=== PATIENT | male | born 1950 ===

== ENCOUNTER 2019-08-17 10:19 | Emergency (ER) | payer OTHER ==
[2019-08-17 10:30] VITALS: BP 118/74
--- NOTE | 2019-08-17 10:34 | UC ---
Respiratory Complaint HPI - HPI Summary HPI Summary: 69 yo male presents with URI symptoms. He tells me that starting 1 week ago he developed sore throat, sinus congestion, and an intermittently productive cough. He figured he had a cold and decided to wait his symptoms out to see if he improved. He did feel better for 2 days earlier this week, but over the last 2 days his cough has worsened and he feels that he is wheezing more. He tells me that he has a long history of moderate asthma and every winter gets "bronchitis" that requires prednisone and anbx. He has an albuterol inhaler at home and has been using this more often over the last 2 days. He feels short of breath at times when getting into "coughing fits". Phelgm is green at times. Denies fever, chest pain, abdominal pain, n/v. He does not smoke - History of Current Complaint Chief Complaint: UCRespiratory Stated Complaint: PRESCRIPTION REFILL Time Seen by Provider: 08/17/19 10:32 Hx Obtained From: Patient Onset/Duration: Gradual Onset Severity Initially: Mild Severity Currently: Mild Pain Intensity: 3 Pain Scale Used: 0-10 Numeric - Allergies/Home Medications Allergies/Adverse Reactions: Allergies Allergy/AdvReac Type Severity Reaction Status Date / Time bee venom protein (honey bee) Allergy Swelling Verified 08/17/19 10:30 Of Face,Lips,& Throat Penicillins Allergy Hives Verified 08/17/19 10:30 shellfish derived Allergy Swelling Verified 08/17/19 10:30 Home Medications: Home Medications Albuterol HFA INHALER* [Proair Hfa Inhaler*] 2 puff INH Q4H PRN 12/19/13 [ History Confirmed 08/17/19] traZODone TAB* [Desyrel TAB*] 50 mg PO BEDTIME PRN 06/07/15 [History Confirmed 08/17/19] guaiFENesin [Guaifenesin] 200 mg PO DAILY PRN 03/27/19 [History Confirmed ] Ezetimibe TAB* [Zetia TAB*] 20 mg PO DAILY 04/03/19 [History Confirmed 08/17/19] Fluticasone HFA 110 mcg(NF) [Flovent HFA 110 mcg(NF)] 1 puff INH BID 04/03/19 [ History Confirmed 08/17/19] Rosuvastatin Calcium 40 mg PO DAILY 04/03/19 [History Confirmed 08/17/19] Azithromycin TAB* [Zithromax TAB (Z-OLGA) 250 mg #6 tabs] 2 tab PO .TODAY, THEN 1 DAILY #1 olga 08/17/19 [Rx] predniSONE 10 mg TAB [Deltasone 10 MG TAB*] 10 mg PO DAILY #20 tab 08/17/19 [Rx] PMH/Surg Hx/FS Hx/Imm Hx Endocrine History: Dyslipidemia Respiratory History: Asthma - Surgical History Surgical History: Yes Surgery Procedure, Year, and Place: LEFT PAROTIDECTOMY 1975 - Family History Known Family History: Positive: Hypertension, Respiratory Disease - Social History Lives: With Family Alcohol Use: Rare Substance Use Type: None Smoking Status (MU): Never Smoked Tobacco Review of Systems All Other Systems Reviewed And Are Negative: No Constitutional: Positive: Fatigue Skin: Positive: Negative Eyes: Positive: Negative ENT: Positive: Nasal Discharge, Sinus Congestion, Sinus Pain/Tenderness Respiratory: Positive: Shortness Of Breath, Cough Cardiovascular: Positive: Negative Gastrointestinal: Positive: Negative Neurological/Mental Status: Positive: Negative Psychological: Positive: Negative Physical Exam - Summary Physical Exam Summary: GENERAL: NAD. WDWN. No pain distress. SKIN: No rashes, sores, lesions, or open wounds. HEENT: Head: AT/NC Eyes: Conjunctiva clear without inflammation or discharge. Ears: Hearing grossly normal. TMs intact, no bulging, erythema, or edema. Nose: Nasal mucosa pink and moist. NTTP maxillary and frontal sinus. Throat: Posterior oropharynx without exudates, erythema, or tonsillar enlargement. Uvula midline. NECK: Supple. Nontender. No lymphadenopathy. CHEST: Moderate wheezing throughout. No r/r. No accessory muscle use. Breathing comfortably and in no distress. CV: RRR. Pulses intact. Cap refill <2seconds NEURO: Alert. PSYCH: Age appropriate behavior. Triage Information Reviewed: Yes Vital Signs: Initial Vital Signs Temp 98.5 F 08/17/19 10:25 Pulse 75 08/17/19 10:25 Resp 21 08/17/19 10:25 BP 118/74 08/17/19 10:25 Pulse Ox 100 08/17/19 10:25 Vital Signs Reviewed: Yes Diagnostics - Radiology CXR Radiology Interpretation Completed By: Radiologist Summary of Radiographic Findings: IMPRESSION: #. Stigmata of obstructive lung disease. No acute pulmonary or cardiac process evident. Respiratory Course/Dx - Course Course Of Treatment: CXR as above. In the clinic pt was given a duoneb treatment and 6mg dexamethasone - he felt much better after this. Less wheezing on recheck. Will rx for prednisone taper and zpak. Recommend recheck within PCP within 1 week - Differential Dx/Diagnosis Differential Diagnosis/HQI/PQRI: Asthma, Bronchitis, Pulmonary Edema, Lower Resp Infection, Pneumothorax, Other - PNA Provider Diagnosis: Asthma exacerbation, Bronchitis Discharge ED - Sign-Out/Discharge Documenting (check all that apply): Patient Departure All imaging exams completed and their final reports reviewed: Yes - Discharge Plan Condition: Stable Disposition: HOME Prescriptions: Azithromycin TAB* [Zithromax TAB (Z-OLGA) 250 mg #6 tabs] 2 tab PO .TODAY, THEN 1 DAILY #1 olga predniSONE 10 mg TAB [Deltasone 10 MG TAB*] 10 mg PO DAILY #20 tab Patient Education Materials: Acute Bronchitis (ED) Referrals: Cole Goins MD [Primary Care Provider] - Additional Instructions: If you develop a fever, shortness of breath, chest pain, new or worsening symptoms - please call your PCP or go to the ED immediately. Start the prednisone tomorrow Continue using your inhalers has prescribed - Billing Disposition and Condition Condition: STABLE Disposition: Home
[2019-08-17] MEDS ORDERED: Albuterol/Ipratropium NEB.SOL* Albuterol 2.5 MG/Ipratropium 0.5 MG 3 ML INH ONE (10:40)
[2019-08-17] MEDS ORDERED: Dexamethasone TAB* 4 MG PO ONE (10:41)
== END 2019-08-17 11:28 | disposition home or self-care (01) ==
LOC: UCEAST 10:19
DX: J45.901 Unspecified asthma with (acute) exacerbation (principal); E78.5 Hyperlipidemia, unspecified; R09.81 Nasal congestion; R09.89 Other specified symptoms and signs involving the circulatory and respiratory systems; Z91.030 Bee allergy status; Z88.0 Allergy status to penicillin; Z91.013 Allergy to seafood; Z79.899 Other long term (current) drug therapy
CPT/HCPCS: 71046; 99212; A9270-GY; G0463; J8540